=== PATIENT | female | born 1955 | race Caucasian/White ===

== ENCOUNTER → 2023-05-16 | Outpatient (CLI) | payer MEDICARE, OTHER ==
[~2023-05-16] MED LIST: CALCIUM 600 MG1 EAC2 PO; FOSAMAX 70MG TA70 MG PO; HCTZ12.5TAB; MULTI VITAMINS1 TAB PO; TENORMIN 2525 MG/TAB; ZESTRIL 5MG5 MG PO; ZETIA 10MG TAB10 MG PO
== END ==
LOC: COL.CARD 08:45
DX: R91.1 Solitary pulmonary nodule (principal); J44.9 Chronic obstructive pulmonary disease, unspecified

== ENCOUNTER 2023-05-19 10:17 | Outpatient (CLI) | payer MEDICARE, OTHER ==
[~2023-05-19] VITALS: Ht 170.2 cm; Wt 59.0 kg
[2023-05-19] VITALS (16 sets, daily range): BP systolic 95–149; BP diastolic 57–91; PULSE 54–73; TEMP 97.6
--- NOTE | 2023-05-19 09:35 | NUR ---
Pt to ct per ambulation. Pt positioned on prone position on table monitors applied.
--- NOTE | 2023-05-19 09:45 | NUR ---
Dr De Luna into room and talks with pt regarding procedure. Verbalized understanding.
--- NOTE | 2023-05-19 09:54 | NUR ---
Specimens obtained by Dr De Luna and placed in formalin. Specimen labeled.
--- NOTE | 2023-05-19 12:21 | NUR ---
Dr De Luna states he has reviewed CXR and pt may discharge. Pt remains free of complaints. Respirations even and unlabored. She denies pain or shortness of breath. Since arriving at [facility] post procedure, she coughed up small amount of sputum with slight blood tinge, this has not increased and has not occured over last hour. IV DC'd, site wrapped with coban. She denies desire for food or drink prior to DC, stating she plans to go to lunch with daughter. She is assisted out by wheelchair to meet daughter at entrance.
== END 2023-05-19 12:25 | disposition home or self-care (01) ==
LOC: COL.RAD 10:17
DX: R91.1 Solitary pulmonary nodule (principal)
CPT/HCPCS: 32106